=== PATIENT | male | born 1950 | race Caucasian/White ===

== ENCOUNTER → 2016-05-16 | Outpatient (CLI) | payer BC, OTHER ==
[~2016-05-16] VITALS: Ht 170.2 cm; Wt 91.2 kg
[~2016-05-16] MED LIST: /AMLO25TA PO; /HCTZ25TA PO; ALTA10CA3 PO; AMLO10TA2 PO; ASPI325T PO; ASPI81CH PO; ASPI81TA4 PO; GLUC500T PO; HYDR-727 PO; HYDR12.55 PO; INSULANT SC; LIDOCAINE 2% INJ 100 MG/5 ML SDV (FOR ANES.) As Ordered ONE; METF1000 PO; NS 1,000 ML IV SCH; PRAV40TA PO; PRAV40TA2 PO; PROPOFOL 200 MG/20 ML VIAL As Ordered ONE; RAMI10CA PO; TOPR100T PO; TOPR25TA PO; TYLE325T5 PO; VICT18IN SC; ZOCO20TA PO; insulin lantus SC
--- NOTE | 2016-05-16 11:25 | ROOR ---
Patient Name: Guerrero Dowd Procedure Date: 05/16/2016 11:04 AM Date of : 1950 Age: 65 Room: [facility] Gender: Male Note Status: Finalized Procedure: Colonoscopy to Cecum + Biopsy Polypectomy Indications: Screening for colorectal malignant neoplasm, Last colonoscopy: 2006 Providers: Alvarez Frank MD Referring MD: Denise Montilla DO Requesting Provider: Medicines: Monitored Anesthesia Care Complications: No immediate complications. Procedure: Pre-Anesthesia Assessment: - The heart rate, respiratory rate, oxygen saturations, blood pressure, adequacy of pulmonary ventilation, and response to care were monitored throughout the procedure. The Colonoscope was introduced through the anus and advanced to the cecum, identified by appendiceal orifice and ileocecal valve. The colonoscopy was performed without difficulty. The patient tolerated the procedure well. The quality of the bowel preparation was excellent. Findings: The perianal and digital rectal examinations were normal. Non-bleeding internal hemorrhoids were found during retroflexion. The hemorrhoids were small and Grade I (internal hemorrhoids that do not prolapse). Scattered small and large-mouthed diverticula were found in the recto-sigmoid colon, sigmoid colon and descending colon. A small polyp was found in the mid ascending colon. The polyp was sessile. The polyp was removed with a cold biopsy forceps. Resection and retrieval were complete. The exam was otherwise without abnormality on direct and retroflexion views. Impression: - Non-bleeding internal hemorrhoids. - Diverticulosis in the recto-sigmoid colon, in the sigmoid colon and in the descending colon. - One small polyp in the mid ascending colon, removed with a cold biopsy forceps. Resected and retrieved. - The examination was otherwise normal on direct and retroflexion views. - The exam was otherwise normal to the cecum. Recommendation: - Patient has a contact number available for emergencies. The signs and symptoms of potential delayed complications were discussed with the patient. Return to normal activities tomorrow. Written discharge instructions were provided to the patient. - High fiber diet. - Discharge patient to home. - Continue present medications. - Await pathology results. - Telephone GI clinic for pathology results in 1 week. - Repeat colonoscopy in 10 years for surveillance based on pathology results. - Return to referring physician. - The findings and recommendations were discussed with the patient's family. Alvarez Frank MD Alvarez Frank MD 05/16/2016 11:25:22 AM This report has been signed electronically. Number of Addenda: 0 Note Initiated On: 05/16/2016 11:04 AM Estimated Blood Loss: Estimated blood loss: none.
[2016-05-16 11:40] VITALS: BP 164/99
== END ==
LOC: M OPP 09:56
PROVIDERS: ATTEND Internal Medicine Gastroenterology
DX: Z12.11 Encounter for screening for malignant neoplasm of colon (principal); K64.0 First degree hemorrhoids; K57.30 Diverticulosis of large intestine without perforation or abscess without bleeding; E11.9 Type 2 diabetes mellitus without complications; I10 Essential (primary) hypertension; E78.00 Pure hypercholesterolemia, unspecified; R06.83 Snoring; Z79.82 Long term (current) use of aspirin; Z79.84 Long term (current) use of oral hypoglycemic drugs; Z79.899 Other long term (current) drug therapy; Z79.4 Long term (current) use of insulin; Z87.891 Personal history of nicotine dependence

== ENCOUNTER 2017-12-20 14:28 | Emergency (ER) | payer MEDICARE, BC, OTHER ==
[2017-12-20] MEDS: hydroCHLOROthiazide 25 MG TAB PO (16:03)
[2017-12-20] MEDS: amLODIPine 5 MG TAB PO (16:03)
[2017-12-20 16:43] LABS: BASO # 0.2 10^3/uL (0.0-0.2); BASO % 1.4 % (0.0-1.0); EOS # 0.3 10^3/uL (0.0-0.50); EOS % 3.2 % (0.0-3.0); HEMATOCRIT 43.2 % (42.0-52.0); HEMOGLOBIN 15.4 g/dl (13.5-17.5); IMMATURE GRANULOCYTE % 1.4 % (0-3.0); LYMPH # 2.4 10^3/uL (1.5-4.5); LYMPH % 22.6 % (24.0-44.0); MEAN CORPUSCULAR HGB CONC 35.6 g/dl (32.0-36.5); MONO # 0.9 10^3/uL (0.0-0.8); MONO % 8.6 % (0.0-5.0); NEUTROPHILS # 6.7 10^3/uL (1.8-7.7); NEUTROPHILS % 62.8 % (36.0-66.0); PLATELET COUNT, AUTOMATED 277 10^3/uL (150-450); RED BLOOD COUNT 5.14 10^6/uL (4.30-6.10); RED CELL DISTRIBUTION WIDTH 12.7 % (11.5-14.5); WHITE BLOOD COUNT 10.7 10^3/uL (4.0-10.0)
[2017-12-20 17:02] LABS: INR 0.83; PROTHROMBIN TIME 11.5 SECONDS (12.1-14.4)
[2017-12-20 17:24] LABS: ALBUMIN/GLOBULIN RATIO 0.85 (1.00-1.93); ALKALINE PHOSPHATASE 94 U/L (45-117); ALT/SGPT 37 U/L (12-78); ANION GAP 9 MEQ/L (8-16); AST/SGOT 26 U/L (7-37); BILIRUBIN,DIRECT < 0.1 MG/DL (0.0-0.2); BILIRUBIN,TOTAL 0.5 MG/DL (0.2-1.0); BLOOD UREA NITROGEN 26 MG/DL (7-18); CALCIUM LEVEL 9.2 MG/DL (8.8-10.2); CARBON DIOXIDE LEVEL 23 MEQ/L (21-32); CHLORIDE LEVEL 102 MEQ/L (98-107); CPK CREATINE PHOSPHOKINASE 159 U/L (39-308); CREATININE FOR GFR 1.51 MG/DL (0.70-1.30); GLOMERULAR FILTRATION RATE 49.6 (>49); GLUCOSE, FASTING 229 MG/DL (70-100); LIPASE 239 U/L (73-393); MB/CK RELATIVE INDEX 2.08 (< OR =4); POTASSIUM SERUM 4.6 MEQ/L (3.5-5.1); SODIUM LEVEL 134 MEQ/L (136-145); TOTAL PROTEIN 8.7 GM/DL (6.4-8.2); TROPONIN I < 0.02 NG/ML (< 0.10)
[2017-12-20] MEDS ORDERED: ISOVUE-370 76% 100ML VIAL (Q9967) As Ordered (17:44)
== END 2017-12-20 19:11 | disposition home or self-care (01) ==
LOC: M ED 14:28
DX: R07.9 Chest pain, unspecified (principal); E11.9 Type 2 diabetes mellitus without complications; I10 Essential (primary) hypertension; E78.5 Hyperlipidemia, unspecified; G47.30 Sleep apnea, unspecified; Z79.899 Other long term (current) drug therapy; Z79.82 Long term (current) use of aspirin; Z79.4 Long term (current) use of insulin; Z87.891 Personal history of nicotine dependence
CPT/HCPCS: Q9967

== ENCOUNTER → 2018-06-12 | Outpatient (REF) | payer MEDICARE, OTHER ==
[~2018-06-12] MED LIST changes: -AMLO10TA2 PO; +AMLO10TA5 PO; +CYCL10TA PO; -LIDOCAINE 2% INJ 100 MG/5 ML SDV (FOR ANES.) As Ordered ONE; -METF1000 PO; +METF10004 PO; -NS 1,000 ML IV SCH; -PROPOFOL 200 MG/20 ML VIAL As Ordered ONE; -RAMI10CA PO; +RAMI1CAP26 PO; -TOPR100T PO; +TOPR100T13 PO
== END ==
LOC: M LAB REF 16:41
PROVIDERS: ATTEND Physician Assistant
DX: J06.9 Acute upper respiratory infection, unspecified (principal)

== ENCOUNTER → 2019-06-23 | Outpatient (CLI) | payer MEDICARE, OTHER ==
[~2019-06-23] MED LIST changes: -/AMLO25TA PO; -/HCTZ25TA PO; -ASPI81CH PO; +ASPI81CH49 PO; +HYDR-3644 PO; +METO-1 PO; +NORV2TAB PO; +TOPR100T PO; -TOPR100T13 PO; -TOPR25TA PO
--- NOTE | 2019-06-23 15:13 | REP ---
RIGHT SHOULDER SERIES: THREE VIEWS. HISTORY: Pain. FINDINGS: Three views of the right shoulder demonstrate normal alignment of the glenohumeral and acromioclavicular joints. There is osteoarthritic hypertrophy and slight narrowing of the AC joint. There is mild spurring of the inferior articular margin of the humeral head as well. There is no evidence of fracture or subluxation. Periarticular soft tissues are unremarkable. No erosive changes seen. 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 Electronically Signed by Chidi Fairbanks MD 06/23/2019 03:41 P
--- NOTE | 2019-06-23 16:09 | REP ---
Cervical spine series: Seven views. History: Pain. Comparison soft-tissue neck radiographs are from December 13, 2007. Findings: There is extensive vascular calcification in the distribution of the left carotid artery. This is not a new finding although the calcification is more extensive. Lateral views done in flexion/extension and neutral position show no subluxation or instability. Vertebral body heights are preserved. The C7-T1 disc space is not visualized on lateral radiographs. No abnormality is seen at the cervical thoracic junction on oblique or AP views. There is mild osteoarthritic facet hypertrophy in the mid cervical spine bilaterally. Open-mouth odontoid view is unremarkable. Impression: Mild degenerative disc and osteoarthritic facet changes. Extensive vascular calcification in the distribution of the left carotid artery. No bony neural foraminal encroachment. Electronically Signed by Chidi Fairbanks MD 06/23/2019 05:00 P
== END ==
LOC: M WUC 11:44
PROVIDERS: ATTEND Nurse Practitioner Family
DX: M25.511 Pain in right shoulder (principal); M54.2 Cervicalgia

== ENCOUNTER → 2019-11-19 | Outpatient (CLI) | payer MEDICARE, BC, OTHER ==
[~2019-11-19] MED LIST changes: -AMLO10TA5 PO; +AMLO1TAB25 PO; +CYCL-707 PO; -CYCL10TA PO
--- NOTE | 2019-11-26 16:57 | REP ---
LEFT KNEE SERIES: 6 VIEWS HISTORY: Lateral and medial pain and difficulty bending. Sprained medial collateral ligament. FINDINGS: There is extensive vascular calcification. There is no evidence of joint effusion. Mild lateral patellar articular spurring is seen consistent with osteoarthritis. Joint spaces are preserved. No fracture is seen. IMPRESSION: Mild patellar spurring. Extensive vascular calcification. No acute bony abnormality. MTDD
== END ==
LOC: M WUC 11:08
PROVIDERS: ATTEND Physician Assistant
DX: S83.412A Sprain of medial collateral ligament of left knee, initial encounter (principal); M17.12 Unilateral primary osteoarthritis, left knee; X58.XXXA Exposure to other specified factors, initial encounter; Y92.9 Unspecified place or not applicable

== ENCOUNTER → 2020-04-06 | Outpatient (CLI) | payer SELFPAY | LOC: M LABSMTC 11:56 | PROVIDERS: ATTEND Pediatrics | DX: Z20.828 Contact with and (suspected) exposure to other viral communicable diseases (principal) ==

== ENCOUNTER → 2020-06-09 | Outpatient (CLI) | payer MEDICARE, BC, OTHER ==
--- NOTE | 2020-06-09 08:51 | REP ---
INDICATION: HYPERTENSIVE CKD, SCREENING FOR AAA. COMPARISON: None. TECHNIQUE: Multiple ultrasonographic images of the aorta. FINDINGS: Aortic in diameter measurements: Proximal, at the diaphragm: 2.1 cm AP x 2.5 cm transverse. At renal artery level: 2.1 cm AP x 2.3 cm transverse. Mid aorta: 2.4 cm AP x 1.8 cm transverse. Distal aorta above the bifurcation: 1.8 cm AP x 2.0 cm transverse Right common iliac artery: 1.0 cm AP x 1.2 cm transverse. Left common iliac artery: 1.2 cm AP x 1.2 cm transverse. IMPRESSION: The abdominal aortic measurements are normal. There is no abdominal aortic aneurysm. <Electronically signed by Tyler Brunner > 06/09/20 [id number]
--- NOTE | 2020-06-09 09:09 | REP ---
INDICATION: RENAL DOPPLER. COMPARISON: None. TECHNIQUE: Bilateral renal ultrasound and bilateral renal artery Doppler ultrasound evaluation. FINDINGS: Bilateral renal ultrasound: The right kidney measures 10.1 x 6.0 x 5.6 cm. The left kidney measures 11.9 x 5.7 x 6.1 cm. The kidneys are normal size. Renal cortical echogenicity is normal bilaterally. There is increased renal sinal so fat bilaterally, compatible with chronic renal disease. There is no hydronephrosis or calculus on the right or the left. There are no solid or cystic renal masses. Bilateral renal artery Doppler evaluation: Right renal artery: Peak renal artery velocity could not be obtained. Peak renal aortic velocity is 72 centimeters/second. Renal-aortic ratio could not be calculated. Resistive index: Upper pole 0.69, mid pole 0.74, lower pole 0.69 Acceleration time: Upper pole 0.114, mid pole 0.147, lower pole 0.103. Left Renal artery: Peak renal artery velocity could not be obtained. Peak aortic velocity: 72 centimeters/second. Renal-aortic ratio: Could not be obtained. Resistive index: Upper pole 0.74, mid pole 0.75, lower pole 0.75 Acceleration time: Upper pole 0.033, mid pole 0.031, lower pole 0.50. The main renal arteries are obscured by bowel gas. On the right in the intrarenal arterial waveforms demonstrate mild tardus/parvus and the acceleration times are increased. These findings are suspicious for right renal artery stenosis. Consider follow-up renal artery MRA for further evaluation. The left kidney intrarenal arterial waveforms are within normal limits. IMPRESSION: The findings suggest right renal artery stenosis. Follow-up renal artery MRI is recommended for confirmation. There are findings compatible with chronic renal disease bilaterally. <Electronically signed by Tyler Brunner > 06/09/20 [id number]
== END ==
LOC: M RAD 07:34
PROVIDERS: ATTEND Family Medicine
DX: I12.9 Hypertensive chronic kidney disease with stage 1 through stage 4 chronic kidney disease, or unspecified chronic kidney disease (principal)

== ENCOUNTER 2020-08-24 09:59 | Emergency (ER) | payer MEDICARE, BC, OTHER ==
[~2020-08-24] VITALS: Ht 167.6 cm; Wt 87.2 kg
[2020-08-24 12:14] VITALS: BP 170/88
== END 2020-08-24 12:20 | disposition home or self-care (01) ==
LOC: M ED 09:59
DX: M25.512 Pain in left shoulder (principal); G89.29 Other chronic pain; E11.9 Type 2 diabetes mellitus without complications; I10 Essential (primary) hypertension; E78.5 Hyperlipidemia, unspecified; G47.33 Obstructive sleep apnea (adult) (pediatric); Z79.82 Long term (current) use of aspirin; Z79.4 Long term (current) use of insulin

== ENCOUNTER → 2020-11-05 | Outpatient (CLI) | payer MEDICARE, BC, OTHER ==
[~2020-11-05] MED LIST changes: +GLIM1TAB4; +OZEM2INJ2; +PERC5TAB12 PO; +TRES1INJ
--- NOTE | 2020-11-05 15:53 | REP ---
INDICATION: IMPINGEMENT SYNDROME LT SHOULDER, MYALGIA. COMPARISON: None. TECHNIQUE: Long and short axes water density and fat density scans were obtained. FINDINGS: There is severe anterior impingement due to acromioclavicular joint hypertrophy. There is full-thickness tear and 2 cm retraction supraspinatus tendon the remainder of the rotator cuff is intact. Bicipital tendon is intact. There is large joint effusion. Fluid is noted in the subacromial bursa. There is no labral injury. IMPRESSION: Supraspinatus tear and retraction. Joint effusion P 8 anterior impingement. RIS/[employer] Issue: The critical information above was relayed directly by me by telephone to CHRIS CROWLEY on 11/05/2020 at 3:30 pm with readback verification. <Electronically signed by Davis Egan > 11/05/20 [id number]
--- NOTE | 2020-11-07 13:30 | REPVR ---
PROCEDURE INFORMATION: Exam: MR Cervical Spine Without Contrast Exam date and time: 11/05/2020 3:01 PM Age: 70 years old Clinical indication: Neck pain; Additional info: Impingement syndrome lt shoulder, myalgia TECHNIQUE: Imaging protocol: Multiplanar magnetic resonance images of the cervical spine without contrast. COMPARISON: CR SPINE CERVICAL COMPL 06/23/2019 12:08 PM FINDINGS: Vertebrae: Unremarkable. Spinal cord: Normal signal. No cord compression. C2-C3: No significant disc disease. No significant spinal stenosis. C3-C4: There is disc desiccation. There is a moderate disc/osteophyte complex, partial toward the right, that flattens the ventral thecal sac and compromises the right neural foramen. There is a small right subarticular disc protrusion. There is bilateral uncovertebral joint arthropathy, worse on the right. There is moderate bilateral neural foraminal narrowing, right worse than left. C4-C5: There is disc desiccation. There is mild ventral ridging which flattens the ventral thecal sac. There is moderate bilateral uncovertebral joint arthropathy. There is moderate bilateral neural foraminal narrowing. C5-C6: There is disc desiccation. There is a moderate disc/osteophyte complex that flattens the ventral thecal sac. There is moderate bilateral uncovertebral joint arthropathy. There is moderate bilateral neural foraminal narrowing. C6-C7: There is disc desiccation. C7-T1: No significant disc disease. No significant spinal stenosis. Soft tissues: Unremarkable. IMPRESSION: Multilevel degenerative changes causing varying degrees of spinal canal and neuroforaminal narrowing. Please see details above. Electronically signed by: Digeo Ibarra On 11/07/2020 13:29:56 PM
== END ==
LOC: M PLAIMG 14:08
PROVIDERS: ATTEND Physician Assistant
DX: M75.42 Impingement syndrome of left shoulder (principal)

== ENCOUNTER → 2021-01-07 | Outpatient (REF) | payer MEDICARE, BC, OTHER | LOC: M LAB REF 11:38 | PROVIDERS: ATTEND Family Medicine | DX: N18.30 Chronic kidney disease, stage 3 unspecified (principal) ==

== ENCOUNTER → 2021-02-02 | Outpatient (CLI) | payer MEDICARE, BC, OTHER ==
[~2021-02-02] MED LIST changes: +PROHANCE 279.3MG/ML 15ML VIAL As Ordered ONE
--- NOTE | 2021-02-02 14:06 | REP ---
INDICATION: POSSIBLE RENAL ARTERY STENOSIS. COMPARISON: Renal Doppler ultrasound 06/09/2020. TECHNIQUE: 3D [id number] MRA imaging performed following the intravenous administration of 12 mL ProHance. MIP reconstruction images performed. FINDINGS: There is a high-grade critical stenosis at the origin of the main right renal artery, 90-99%. Proximal main left renal artery demonstrates narrowing in the range of about 40-50%. The celiac, superior mesenteric and inferior mesenteric arteries are patent with no stenosis. The abdominal aorta demonstrates no aneurysm. The proximal common iliac arteries are normal in caliber. On the localizing images of the abdomen the liver, spleen, adrenals, pancreas and kidneys are otherwise unremarkable. No adenopathy or free fluid is seen. IMPRESSION: High-grade critical stenosis at the origin of the main right renal artery, 90-99%. There is narrowing of the proximal main left renal artery 40-50%. <Electronically signed by Tyler An > 02/02/21 [id number]
== END ==
LOC: M RAD 09:37
PROVIDERS: ATTEND Family Medicine
DX: I70.1 Atherosclerosis of renal artery (principal)
CPT/HCPCS: A9576; C8902

== ENCOUNTER → 2021-02-08 | Outpatient (POV) | payer MEDICARE, BC, OTHER ==
[~2021-02-08] VITALS: Ht 167.6 cm; Wt 86.3 kg
[~2021-02-08] MED LIST changes: -PROHANCE 279.3MG/ML 15ML VIAL As Ordered ONE
[2021-02-08 10:35] VITALS: BP 170/90
--- NOTE | 2021-02-10 13:27 | IRCOV ---
[facility] IR Consult Office Visit IR Consult Office Visit DATE: Feb 08, 2021 REASON FOR CONSULTATION/CHIEF COMPLAINT: Renal artery stenosis. HISTORY OF PRESENT ILLNESS: 70-year-old male, ex-smoker with prior stroke in 2012, diabetes and hyperlipidemia, presents for renal artery stenosis. Patient reports history of hypertension for greater than 25 years. His blood pressure is never below the 160s systolic. He is on 4 antihypertensives and still his blood pressure will not come down. Currently he is taking amlodipine 10 mg daily, hydrochlorothiazide 25 mg daily, metoprolol 100 mg daily and ramipril 10 mg daily. Patient does not have any history of flash pulmonary edema. Patient is not currently in renal failure. He is scheduled to see nephrology in March. Patient is on aspirin 325 mg daily. ALLERGIES: Please see below. HOME MEDICATIONS: Please see below. PAST MEDICAL HISTORY: Stroke in 2012. No residual weakness. Diabetes Hyperlipidemia PAST SURGICAL HISTORY: Hand surgery FAMILY HISTORY: Noncontributory. SOCIAL HISTORY: Ex smoker. Quit 20 years ago. Denies alcohol or drugs. REVIEW OF SYSTEMS: Otherwise negative. PHYSICAL EXAMINATION: VITAL SIGNS: Please see below. GENERAL APPEARANCE: Appears well. . HEENT: No scleral icterus. RESPIRATORY: Normal breathing at rest. CARDIOVASCULAR: Normal rate. Systolic murmur. ABDOMEN: Soft nontender. EXTREMITIES: No edema. NEUROLOGICAL: Alert and oriented. PSYCHIATRIC: Appropriate to circumstance. LABORATORY DATA: No labs in our system. We will request outside labs. Imaging: I personally reviewed the MRI abdomen without and with contrast performed 02/02/2021. There is critical right renal artery stenosis. Moderate left renal artery stenosis. No significant atrophy of either kidney. ASSESSMENT/PLAN: 70-year-old male with refractory hypertension, currently on 4 antihypertensives, presents with right greater than left renal artery stenosis. I agree patient would benefit from angiography and right renal artery stenting if possible. The goal would be better blood pressure control and hopefully decrease in number of future antihypertensives used. We discussed the risks and benefits of the procedure and patient is willing to proceed. We have scheduled the patient for renal artery angiography and stenting. I spent 30 minutes reviewing patient's records, imaging and in consultation with the patient. Thank you for this referral. CC Dr. Kendall Lezama Allergies Coded Allergies: No Known Allergies (Verified , 04/22/12) Home Medications Scheduled Amlodipine Besylate (Amlodipine Besylate), 10 MG PO DAILY, (Reported) Aspirin (Aspirin), 325 MG PO DAILY, (Reported) Hydrochlorothiazide (Hydrochlorothiazide), 25 MG PO DAILY, (Reported) Metformin HCl (Metformin HCl), 1,000 MG PO BID, (Reported) Metoprolol Succinate (Toprol Xl), 100 MG PO DAILY, (Reported) Pravastatin Sodium (Pravastatin Sodium), 40 MG PO DAILY, (Reported) Ramipril (Ramipril), 10 MG PO DAILY, (Reported) Scheduled PRN Oxycodone HCl/Acetaminophen (Percocet 5-325 mg Tablet), 1 TAB PO Q6H PRN for PAIN Miscellaneous Medications Glimepiride (Glimepiride), (Reported) Insulin Degludec (Tresiba Flextouch U-200), (Reported) Semaglutide (Ozempic), (Reported) VS, I&O, 24H, Fishbone Vital Signs/I&O Vital Signs Date Time Temp Pulse Resp B/P (MAP) Pulse Ox O2 Delivery O2 Flow Rate FiO2 02/08/21 10:35 98.0 91 20 170/90 (116) 98 Room Air RAYMUNDO CHERRY MD Feb 10, 2021 13:27
== END ==
LOC: M IRPOV 10:28
PROVIDERS: ATTEND Radiology Diagnostic Radiology
DX: I70.1 Atherosclerosis of renal artery (principal); E11.9 Type 2 diabetes mellitus without complications; E78.5 Hyperlipidemia, unspecified; I10 Essential (primary) hypertension; Z79.82 Long term (current) use of aspirin; Z79.899 Other long term (current) drug therapy; Z86.73 Personal history of transient ischemic attack (TIA), and cerebral infarction without residual deficits; Z87.891 Personal history of nicotine dependence

== ENCOUNTER → 2021-02-24 | Outpatient (CLI) | payer MEDICARE, BC, OTHER ==
[~2021-02-24] MED LIST changes: +GABA-1171 PO; +ISOVUE-300 61% 50ML VIAL As Ordered ONE; +LIDOCAINE 1% MDV 20ML VIAL As Ordered ONE; +MIDAZOLAM INJ 2MG/2ML VIAL (J2250 PER 1MG) As Ordered ONE; +ONDANSETRON 4MG/2ML VIAL IV PRN; +PERCOCET 5MG/325MG TAB As Ordered ONE; +diphenhydrAMINE 50MG/ML VIAL (J1200) As Ordered ONE; +fentaNYL 100 MCG/2 ML INJECTION (J3010) As Ordered ONE
[2021-02-24] MEDS: NS 1,000 ML IV SCH (07:24)
--- NOTE | 2021-02-24 08:08 | IRHP ---
[facility] IR Pre-Procedure H & P General Date of Service: Feb 24, 2021 Procedure: Same Day Surgery Interval History and Physical I have seen the patient and reviewed last H & P performed within 30 days. There is no significant interval change. History of Present Illness Chief Complaint The patient is a 70-year-old male admitted with a reason for visit of Renal Artery Stenosis. PRE-PROCEDURE DIAGNOSIS: Renal artery stenosis HEART: Normal rate. LUNGS: Normal breathing at rest. ASA Classification ASA Classification: III-Severe systemic dis. Mallampati Score: II NPO: Yes Problems with prior sedation: No Obstructive Sleep Apnea: No Plan moderate sedation Allergies Coded Allergies: No Known Allergies (Verified , 04/22/12) Home Medications Scheduled Amlodipine Besylate (Amlodipine Besylate), 10 MG PO DAILY, (Reported) Aspirin (Aspirin), 325 MG PO DAILY, (Reported) Gabapentin (Gabapentin), 100 MG PO TID, (Reported) Hydrochlorothiazide (Hydrochlorothiazide), 25 MG PO DAILY, (Reported) Metformin HCl (Metformin HCl), 1,000 MG PO BID, (Reported) Metoprolol Succinate (Toprol Xl), 100 MG PO DAILY, (Reported) Pravastatin Sodium (Pravastatin Sodium), 40 MG PO DAILY, (Reported) Ramipril (Ramipril), 10 MG PO DAILY, (Reported) Miscellaneous Medications Glimepiride (Glimepiride), (Reported) Insulin Degludec (Tresiba Flextouch U-200), (Reported) Semaglutide (Ozempic), (Reported) Discontinued Medications Oxycodone HCl/Acetaminophen (Percocet 5-325 mg Tablet), 1 TAB PO Q6H PRN for PAIN Discontinued Reason: Pt states not taking VS, I&O, 24H, Fishbone Vital Signs/I&O Vital Signs Date Time Temp Pulse Resp B/P (MAP) Pulse Ox O2 Delivery O2 Flow Rate FiO2 02/24/21 07:00 97.8 89 20 99 Room Air RAYMUNDO CHERRY MD Feb 24, 2021 08:08
--- NOTE | 2021-02-24 14:20 | IRPON ---
IR Postoperative Note Date Of Procedure: Feb 24, 2021 Time Of Procedure: 14:06 IR Postoperative Note IR Aortogram IR Selective right renal angiogram. IR Right renal artery stenting. IR Moderate sedation. Clinical Information:Right renal artery stenosis. Refractory hypertension on 4 antihypertensives. Physician: Dr. De León. Procedure: The patient was advised of the benefits, risks, and alternatives of the procedure and informed consent was obtained. A time out was performed with verification of the patient's name, MRN, site of procedure, and type of procedure to be performed. The patient was positioned in the supine position on the angiographic table. The site was prepped and draped in the usual sterile fashion. Moderate sedation was performed by the physician including the presence of an independent trained RN, who assisted in monitoring the patient's level of consciousness and physiological status. Following the administration of fentanyl and Versed, the physician spent 60 minutes of continuous [id number] time with the patient. A nascar racer radiograph reveals no gross abnormality. Ultrasound of the right groin demonstrates patent right common femoral artery. Lidocaine was used for local anesthesia. The right common femoral artery was accessed, under ultrasound guidance with a microintroducer set. A short 0.018" [place] wire was inserted and the needle was exchanged for a 4 Fr microintroducer sheath. The guidewire and dilator were removed and a 0.035" [place]ents[place] wire was advanced under fluoroscopy guidance and positioned in the the abdominal aorta. A 6 Fr sheath was placed over the wire. A pigtail catheter was advanced over the wire, under fluoroscopy guidance and used to catheterize the abdominal aorta. An aortogram was performed which demonstrates right greater than left renal artery stenosis. There is delayed opacification of the right renal artery and vascularization of the right kidney in comparison to the left kidney. An [facility] guiding catheter was advanced over the wire, under fluoroscopy guidance and positioned at the ostium of the right renal artery. An angiogram was performed and this demonstrates the anatomy of the main right renal artery and location of the proximal stenosis. The Bentson wires were removed. An [address] wire was then advanced through the guiding catheter, under fluoroscopy guidance and used to access the right renal artery. The wire was positioned in the distal right renal artery. A 5 x 19 mm balloon expandable express stent was then advanced over the wire, under fluoroscopy guidance and positioned in the proximal right renal artery for adequate coverage of the area of stenosis. The balloon expandable stent was deployed under fluoroscopy guidance. A follow-up angiogram was performed through the guiding catheter and this demonstrates appropriate placement of the stent in the right proximal renal artery with improved flow to the right kidney. No residual stenosis. No vessel spasm, dissection or distal emboli. Deployment device, wire and guiding catheter were removed under fluoroscopy gu idance. The sheath was removed. A 6 [place] [employer] device was used to close the right groin arteriotomy. A sterile dressing was applied to the site. The patient tolerated the procedure well and was returned to the PRU in stable condition. EBL: < 5 mL. Complications:None. Impression: 1. Renal angiogram demonstrates right greater than left renal artery stenosis. 2. Successful right renal artery stent placement with improved flow to the right kidney. 3. Patient is to continue aspirin 325. He will be started on Plavix for 30 days. Patient to follow-up in IR clinic in 2 weeks. Thank you for this referral CC RAYMUNDO Iyer MD Feb 24, 2021 14:20
[2021-02-24] MEDS: PERCOCET 5MG/325MG TAB PO PRN (14:38)
[2021-02-24 15:10] VITALS: BP 160/84
== END ==
LOC: M IRPRO 06:29
PROVIDERS: ATTEND Radiology Diagnostic Radiology
DX: I70.1 Atherosclerosis of renal artery (principal); Z79.4 Long term (current) use of insulin; Z79.82 Long term (current) use of aspirin; Z79.84 Long term (current) use of oral hypoglycemic drugs; Z79.890 Hormone replacement therapy

== ENCOUNTER → 2021-03-17 | Outpatient (REF) | payer MEDICARE, BC, OTHER ==
[~2021-03-17] MED LIST changes: -ISOVUE-300 61% 50ML VIAL As Ordered ONE; -LIDOCAINE 1% MDV 20ML VIAL As Ordered ONE; -MIDAZOLAM INJ 2MG/2ML VIAL (J2250 PER 1MG) As Ordered ONE; -ONDANSETRON 4MG/2ML VIAL IV PRN; -PERCOCET 5MG/325MG TAB As Ordered ONE; -diphenhydrAMINE 50MG/ML VIAL (J1200) As Ordered ONE; -fentaNYL 100 MCG/2 ML INJECTION (J3010) As Ordered ONE
== END ==
LOC: M LAB REF 11:47
PROVIDERS: ATTEND Family Medicine
DX: E83.52 Hypercalcemia (principal)

== ENCOUNTER → 2021-03-29 | Outpatient (POV) | payer MEDICARE, BC, OTHER ==
[~2021-03-29] VITALS: Ht 167.6 cm; Wt 86.3 kg
[2021-03-29 16:20] VITALS: BP 177/83
== END ==
LOC: M IRPOV 16:07
PROVIDERS: ATTEND Radiology Diagnostic Radiology
DX: I70.1 Atherosclerosis of renal artery (principal); Z48.816 Encounter for surgical aftercare following surgery on the genitourinary system; Z79.01 Long term (current) use of anticoagulants; Z79.82 Long term (current) use of aspirin

== ENCOUNTER → 2021-04-04 | Outpatient (REF) | payer MEDICARE, BC, OTHER ==
[2021-04-04 18:24] LABS: CREATININE,RANDOM URINE 32.6 MG/DL; TOTAL PROTEIN,RANDOM URINE 63.3 MG/DL (0.0-12.0)
== END ==
LOC: M LAB REF 17:10
PROVIDERS: ATTEND Internal Medicine Nephrology
DX: R80.9 Proteinuria, unspecified (principal)

== ENCOUNTER → 2021-07-30 | Outpatient (CLI) | payer MEDICARE, BC, OTHER ==
[~2021-07-30] MED LIST changes: +CLOP75TA2 PO; -GLIM1TAB4; +GLIM1TAB4 PO; +SEMA1PEN2 SQ; -TRES1INJ; +TRES1INJ SC
== END ==
LOC: M LABSMTC 09:27
PROVIDERS: ATTEND Anesthesiology
DX: Z01.812 Encounter for preprocedural laboratory examination (principal); Z20.822 Contact with and (suspected) exposure to COVID-19

== ENCOUNTER 2021-08-04 06:28 | Day surgery (SDC) | payer MEDICARE, BC, OTHER ==
[~2021-08-04] VITALS: Ht 167.6 cm; Wt 90.6 kg
[2021-08-04] MEDS ORDERED: NIFE90TA20 PO (06:42)
[2021-08-04] MEDS ORDERED: LIDOCAINE 1% SDV 5ML VIAL As Ordered ONE (06:44)
[2021-08-04] MEDS: FLURBIPROFEN 0.03% OPHTH SOLN 2.5 ML OS SCH ×3 (06:55→07:08)
[2021-08-04] MEDS: TETRACAINE 0.5% OPHTH SOLN 4ML OS SCH ×2 (06:55→07:01)
[2021-08-04] MEDS: PHENYLEPHRINE 2.5% OPHTH SOL 2ML OS SCH ×3 (06:55→07:08)
[2021-08-04] MEDS: CYCLOPENTOLATE 1% OPHTH SOLN 2 ML BTL OS SCH ×3 (06:56→07:08)
[2021-08-04] MEDS ORDERED: LR 1,000 ML IV SCH (07:00)
[2021-08-04] MEDS ORDERED: MAXITROL OPHTH SUSP 5 ML As Ordered ONE (07:09)
[2021-08-04] MEDS ORDERED: TRYPAN BLUE 0.06 % 2.25 ML OPHTH SYR (VISIONBLUE) As Ordered ONE (07:20)
[2021-08-04] MEDS ORDERED: fentaNYL 100 MCG/2 ML INJECTION As Ordered ONE (08:24)
[2021-08-04] MEDS ORDERED: MIDAZOLAM INJ 2MG/2ML VIAL (J2250 PER 1MG) As Ordered ONE (08:24)
[2021-08-04 08:46] VITALS: BP 119/64
== END 2021-08-04 09:19 | disposition home or self-care (01) ==
LOC: M OPP 06:28
PROVIDERS: ATTEND Ophthalmology
DX: H25.12 Age-related nuclear cataract, left eye (principal); I12.9 Hypertensive chronic kidney disease with stage 1 through stage 4 chronic kidney disease, or unspecified chronic kidney disease; E11.65 Type 2 diabetes mellitus with hyperglycemia; K76.9 Liver disease, unspecified; E78.5 Hyperlipidemia, unspecified; I70.1 Atherosclerosis of renal artery; G47.33 Obstructive sleep apnea (adult) (pediatric); N18.30 Chronic kidney disease, stage 3 unspecified; E11.40 Type 2 diabetes mellitus with diabetic neuropathy, unspecified; R06.83 Snoring; Z86.73 Personal history of transient ischemic attack (TIA), and cerebral infarction without residual deficits; Z87.891 Personal history of nicotine dependence; Z79.899 Other long term (current) drug therapy; Z79.02 Long term (current) use of antithrombotics/antiplatelets; Z79.84 Long term (current) use of oral hypoglycemic drugs; Z79.82 Long term (current) use of aspirin; Z79.4 Long term (current) use of insulin; Z96.89 Presence of other specified functional implants
CPT/HCPCS: 66984; J2250; J3010; V2632

== ENCOUNTER → 2021-08-16 | Outpatient (CLI) | payer MEDICARE, BC, OTHER ==
[~2021-08-16] MED LIST changes: +NIFE90TA20 PO
== END ==
LOC: M CARPUL 08:09
PROVIDERS: ATTEND Family Medicine
DX: R01.1 Cardiac murmur, unspecified (principal)

== ENCOUNTER 2021-10-07 07:23 | Inpatient (IN) | payer MEDICARE, BC, OTHER ==
[2021-10-07] VITALS (18 sets, daily range): BP systolic 118–171; BP diastolic 64–89
[~2021-10-07 07:23] MED LIST changes: +SEMA1PEN2 SC; -SEMA1PEN2 SQ
[2021-10-07] MEDS ORDERED: PROPOFOL 1,000 MG/100 ML VIAL As Ordered ONE (07:44)
[2021-10-07 07:45] LABS: HEMATOCRIT 44.9 % (42.0-52.0); HEMOGLOBIN 14.2 g/dl (13.5-17.5); MEAN CORPUSCULAR HGB CONC 31.6 g/dl (32.0-36.5); MEAN CORPUSCULAR VOLUME 94.9 fl (80.0-96.0); PLATELET COUNT, AUTOMATED 288 10^3/uL (150-450); RED BLOOD COUNT 4.73 10^6/uL (4.30-6.10); WHITE BLOOD COUNT 19.1 10^3/uL (4.0-10.0)
[2021-10-07] MEDS ORDERED: ETOMIDATE INJ 20MG/10ML VIAL IV ONE (07:45)
[2021-10-07] MEDS ORDERED: LABETALOL HCL 200 MG in D5W 160 ML IV SCH (07:45)
[2021-10-07] MEDS ORDERED: propofoL 1,000 MG in IV 1 EA IV SCH (07:45)
[2021-10-07] MEDS ORDERED: FUROSEMIDE 100MG/10ML VIAL (J1940) IV ONE (07:45)
[2021-10-07] MEDS ORDERED: ROCURONIUM BROMIDE 50 MG/5 ML VIAL IV ONE (07:45)
[2021-10-07 07:49] LABS: BASO # 0.4 10^3/uL (0.0-0.2); BASO % 2.1 % (0.0-1.0); EOS # 2.7 10^3/uL (0.0-0.5); EOS % 14.3 % (0.0-3.0); HEMATOCRIT 45.5 % (42.0-52.0); LYMPH # 6.9 10^3/uL (1.5-5.0); LYMPH % 36.1 % (24.0-44.0); MEAN CORPUSCULAR HEMOGLOBIN 29.1 pg (27.0-33.0); MEAN CORPUSCULAR HGB CONC 30.8 g/dl (32.0-36.5); MEAN CORPUSCULAR VOLUME 94.6 fl (80.0-96.0); MONO % 9.8 % (2.0-8.0); NEUTROPHILS % 36.5 % (36.0-66.0); PLATELET COUNT, AUTOMATED 289 10^3/uL (150-450); RED BLOOD COUNT 4.81 10^6/uL (4.30-6.10); WHITE BLOOD COUNT 19.1 10^3/uL (4.0-10.0)
[2021-10-07 08:02] LABS: INR 0.9; PROTHROMBIN TIME 12.6 SECONDS (12.7-14.5)
[2021-10-07 08:13] LABS: ALBUMIN 3.8 GM/DL (3.2-5.2); BILIRUBIN,DIRECT 0.3 MG/DL (0.0-0.2); BILIRUBIN,TOTAL 0.4 MG/DL (0.2-1.0); CK-MB VALUE MASS 3.7 NG/ML (<3.6); CREATININE FOR GFR 1.52 MG/DL (0.70-1.30); GLOMERULAR FILTRATION RATE 48.6 (>49); MB/CK RELATIVE INDEX 3.52 (< OR =4); POTASSIUM SERUM 4.5 MEQ/L (3.5-5.1); TOTAL PROTEIN 7.7 GM/DL (6.4-8.2)
[2021-10-07 08:14] LABS: MONO # 1.9 10^3/uL (0.0-0.8)
[2021-10-07] MEDS ORDERED: AMLO1TAB25 PO (08:35)
[2021-10-07] MEDS ORDERED: METO1TAB7 PO (08:35)
[2021-10-07] MEDS ORDERED: ASPIRIN ENTERIC 325 MG TAB PO SCH (09:00)
[2021-10-07] MEDS ORDERED: CHLORHEXIDINE GLUCONATE 0.12 % 15ML UDC (PERIDEX ORAL RINSE) MT SCH (09:00)
[2021-10-07] MEDS ORDERED: ATORVASTATIN 20 MG TAB PO SCH (09:00)
[2021-10-07] MEDS ORDERED: LISINOPRIL *2.5 MG* TAB PO SCH (09:00)
[2021-10-07] MEDS ORDERED: PANTOPRAZOLE 40MG VIAL IV SCH (09:00)
[2021-10-07] MEDS ORDERED: ENOXAPARIN 40MG/0.4ML SYRINGE (J1650 PER 10MG) SC SCH (09:00)
[2021-10-07] MEDS ORDERED: ATOR40TA75 PO (09:24)
[2021-10-07] MEDS ORDERED: HYDR-3490 PO (09:24)
[2021-10-07] MEDS ORDERED: ASPI-1 PO (09:24)
[2021-10-07] MEDS ORDERED: GABA-282 PO (09:24)
[2021-10-07] MEDS ORDERED: HOME MED LIST COMPLETE! XX SCH (09:30)
[2021-10-07] MEDS ORDERED: fentaNYL CITRATE 1,000 MCG in NS 80 ML IV SCH (11:00)
[2021-10-07 11:25] LABS: ABG BASE EXCESS -5.2 (-2.0-2.0); ABG HCO3 21.2 MEQ/L (22.0-26.0); ABG O2 SATURATION 96.2 % (95.0-99.0); ABG PARTIAL PRESSURE CO2 44.3 mmHg (35.0-45.0); ABG PARTIAL PRESSURE O2 86.7 mmHg (75.0-100.0); ABG STANDARD HCO3 20.2 MEQ/L (22.0-26.0); ABG TOTAL CO2 22.5 MEQ/L (23.0-31.0); ABG pH (ARTERIAL) 7.297 UNITS (7.350-7.450)
[2021-10-07] MEDS: propofoL 1,000 MG in IV 1 EA IV SCH ×2 (12:30→14:00)
[2021-10-07 12:59] LABS: MAGNESIUM LEVEL 1.7 MG/DL (1.8-2.4); PHOSPHORUS LEVEL 3.4 MG/DL (2.5-4.9)
[2021-10-07 14:41] LABS: CK-MB VALUE MASS 10.5 NG/ML (<3.6); MB/CK RELATIVE INDEX 6.48 (< OR =4)
[2021-10-07] MEDS ORDERED: HEPARIN SOD (PORCINE) 5000UNITS/ML 1ML VIAL/SYRINGE IV PRN (14:50)
[2021-10-07] MEDS ORDERED: NITROGLYCERIN 0.4 MG SUBL TABLET SL PRN (14:55)
[2021-10-07] MEDS ORDERED: HEPARIN SOD (PORCINE) 5000UNITS/ML 1ML VIAL/SYRINGE IV ONE (15:15)
[2021-10-07] MEDS ORDERED: ASPIRIN 325 MG TAB NG STA (15:17)
[2021-10-07] MEDS ORDERED: CLOPIDOGREL 75 MG TAB PO ONE (15:20)
[2021-10-07 15:39] LABS: PARTIAL THROMBOPLASTIN TIME 29.7 SECONDS (25.9-37.0)
[2021-10-07 15:50] LABS: HEMATOCRIT 38.7 % (42.0-52.0); HEMOGLOBIN 12.8 g/dl (13.5-17.5); MEAN CORPUSCULAR HEMOGLOBIN 29.4 pg (27.0-33.0); MEAN CORPUSCULAR HGB CONC 33.1 g/dl (32.0-36.5); MEAN CORPUSCULAR VOLUME 88.8 fl (80.0-96.0); PLATELET COUNT, AUTOMATED 197 10^3/uL (150-450); RED BLOOD COUNT 4.36 10^6/uL (4.30-6.10); WHITE BLOOD COUNT 12.7 10^3/uL (4.0-10.0)
[2021-10-07] MEDS ORDERED: METOPROLOL 5 MG/5 ML VIAL IV STA (15:51)
[2021-10-07] MEDS ORDERED: METOPROLOL 5 MG/5 ML VIAL As Ordered ONE (15:51)
[2021-10-07] MEDS ORDERED: HEPARIN DRIP 25,000 UNITS in IV 1 EA IV SCH (16:00)
== END 2021-10-07 16:35 | disposition short-term general hospital (02) | DRG 311 ==
LOC: M ED 07:23 → EDBD 07:23 → M ED INP 10:31 → ENRESERV 11:03 → M ICU 12:28
PROVIDERS: ADMIT Internal Medicine; ATTEND Internal Medicine
PROC: 0BH17EZ Insertion of Endotracheal Airway into Trachea, Via Natural or Artificial Opening (ICD-10-PCS; principal; 2021-10-07)
PROC: 5A1935Z Respiratory Ventilation, Less than 24 Consecutive Hours (ICD-10-PCS; 2021-10-07)
DX: I24.9 Acute ischemic heart disease, unspecified (principal); J96.02 Acute respiratory failure with hypercapnia; J81.0 Acute pulmonary edema; I16.1 Hypertensive emergency; R07.9 Chest pain, unspecified; G47.33 Obstructive sleep apnea (adult) (pediatric); E11.22 Type 2 diabetes mellitus with diabetic chronic kidney disease; I12.9 Hypertensive chronic kidney disease with stage 1 through stage 4 chronic kidney disease, or unspecified chronic kidney disease; E66.9 Obesity, unspecified; Z87.891 Personal history of nicotine dependence; N18.30 Chronic kidney disease, stage 3 unspecified; Z86.73 Personal history of transient ischemic attack (TIA), and cerebral infarction without residual deficits; I70.1 Atherosclerosis of renal artery; Z98.41 Cataract extraction status, right eye; E11.51 Type 2 diabetes mellitus with diabetic peripheral angiopathy without gangrene; Z79.82 Long term (current) use of aspirin; Z79.02 Long term (current) use of antithrombotics/antiplatelets; Z79.4 Long term (current) use of insulin; Z79.899 Other long term (current) drug therapy; Z68.32 Body mass index [BMI] 32.0-32.9, adult

== ENCOUNTER → 2021-10-27 | Outpatient (CLI) | payer MEDICARE, BC, OTHER ==
[~2021-10-27] MED LIST changes: +ASPI-1 PO; +ATOR40TA75 PO; +GABA-282 PO; +HYDR-3490 PO; +METO1TAB7 PO
[2021-10-27 12:29] LABS: ALBUMIN 3.6 GM/DL (3.2-5.2); CALCIUM LEVEL 9.8 MG/DL (8.8-10.2); CREATININE FOR GFR 1.95 MG/DL (0.70-1.30); GLOMERULAR FILTRATION RATE 36.5 (>49); POTASSIUM SERUM 4.9 MEQ/L (3.5-5.1)
== END ==
LOC: M RAD 10:02
PROVIDERS: ATTEND Internal Medicine Cardiovascular Disease
DX: I50.41 Acute combined systolic (congestive) and diastolic (congestive) heart failure (principal); R09.89 Other specified symptoms and signs involving the circulatory and respiratory systems; Z86.73 Personal history of transient ischemic attack (TIA), and cerebral infarction without residual deficits

== ENCOUNTER → 2021-10-31 | Outpatient (CLI) | payer MEDICARE, BC, OTHER | LOC: M RAD 06:24 | PROVIDERS: ATTEND Internal Medicine Cardiovascular Disease | DX: I10 Essential (primary) hypertension (principal) ==

== ENCOUNTER → 2021-11-14 | Outpatient (CLI) | payer MEDICARE, BC, OTHER | LOC: M PLALAB 10:25 | PROVIDERS: ATTEND Internal Medicine Cardiovascular Disease | DX: I50.42 Chronic combined systolic (congestive) and diastolic (congestive) heart failure (principal) ==

== ENCOUNTER 2022-01-12 14:22 | Inpatient (IN) | payer OTHER, MEDICARE, BC ==
[~2022-01-12] VITALS: Ht 167.6 cm; Wt 76.0 kg
[2022-01-12] MEDS ORDERED: ONDANSETRON 4MG 2ML VIAL IV ONE (14:40)
[2022-01-12] MEDS ORDERED: MORPHINE 2 MG/ML 1ML VIAL IV PRN (14:40)
[2022-01-12 15:49] LABS: BASO # 0.1 10^3/uL (0.0-0.2); BASO % 1.2 % (0.0-1.0); EOS # 0.4 10^3/uL (0.0-0.5); EOS % 3.6 % (0.0-3.0); HEMATOCRIT 38.5 % (42.0-52.0); HEMOGLOBIN 12.7 g/dl (13.5-17.5); LYMPH # 1.3 10^3/uL (1.5-5.0); LYMPH % 11.8 % (24.0-44.0); MEAN CORPUSCULAR HEMOGLOBIN 29.6 pg (27.0-33.0); MEAN CORPUSCULAR VOLUME 89.7 fl (80.0-96.0); MONO # 0.7 10^3/uL (0.0-0.8); MONO % 6.9 % (2.0-8.0); NEUTROPHILS % 75.6 % (36.0-66.0); PLATELET COUNT, AUTOMATED 186 10^3/uL (150-450); RED BLOOD COUNT 4.29 10^6/uL (4.30-6.10); WHITE BLOOD COUNT 10.6 10^3/uL (4.0-10.0)
[2022-01-12 16:05] LABS: INR 0.94; PROTHROMBIN TIME 12.8 SECONDS (12.5-14.5)
[2022-01-12 16:25] LABS: ALBUMIN 3.8 GM/DL (3.2-5.2); BILIRUBIN,DIRECT 0.1 MG/DL (0.0-0.2); BILIRUBIN,TOTAL 0.4 MG/DL (0.2-1.0); CALCIUM LEVEL 9.2 MG/DL (8.8-10.2); CREATININE FOR GFR 1.6 MG/DL (0.70-1.30); GLOMERULAR FILTRATION RATE 45.9 (>49); POTASSIUM SERUM 4.3 MEQ/L (3.5-5.1); TOTAL PROTEIN 7.1 GM/DL (6.4-8.2)
[2022-01-12 16:26] LABS: CK-MB VALUE MASS 3.8 NG/ML (<3.6); MB/CK RELATIVE INDEX 2.52 (< OR =4)
[2022-01-12] MEDS ORDERED: DEXTROSE 50% 50 ML SYRINGE IV PRN (17:00)
[2022-01-12] MEDS ORDERED: GLUCOSE 4GM CHEW TABLET PO PRN (17:00)
[2022-01-12] MEDS ORDERED: GLUCAGON INJ 1MG VIAL SC PRN (17:00)
[2022-01-12] MEDS: INSULIN LISPRO (NovoLOG) PER UNIT SC SCH ×2 (17:30→21:00)
[2022-01-12] MEDS ORDERED: AMLO1TAB24 PO (18:38)
[2022-01-12] MEDS ORDERED: ATOR80TA59 PO (18:38)
[2022-01-12] MEDS ORDERED: ASPI81CH33 PO (18:38)
[2022-01-12 18:49] LABS: CK-MB VALUE MASS 4.9 NG/ML (<3.6); MB/CK RELATIVE INDEX 2.69 (< OR =4)
[2022-01-12] MEDS ORDERED: TORS5TAB2 PO (18:49)
[2022-01-12] MEDS ORDERED: NITR0.4S14 SL (18:49)
[2022-01-12] MEDS ORDERED: CARV25TA PO (18:49)
[2022-01-12] MEDS ORDERED: HOME MED LIST COMPLETE! XX SCH (18:55)
[2022-01-12 19:18] LABS: RSV AMPLIFICATION NEGATIVE (NEGATIVE)
[2022-01-12 23:30] VITALS: BP 178/90
[2022-01-12 23:53] LABS: CK-MB VALUE MASS 3.7 NG/ML (<3.6); MB/CK RELATIVE INDEX 2.26 (< OR =4)
[2022-01-13] VITALS (10 sets, daily range): BP systolic 131–166; BP diastolic 60–78
[2022-01-13] MEDS ORDERED: NITROGLYCERIN 0.4 MG SUBL TABLET SL SCH
[2022-01-13] MEDS: amLODIPine 5 MG TAB PO SCH ×3 (00:16→20:13)
[2022-01-13] MEDS ORDERED: NITROGLYCERIN 0.4 MG SUBL TABLET SL PRN (00:35)
[2022-01-13 05:51] LABS: MEAN CORPUSCULAR HEMOGLOBIN 29.3 pg (27.0-33.0); MEAN CORPUSCULAR HGB CONC 32.4 g/dl (32.0-36.5); MEAN CORPUSCULAR VOLUME 90.2 fl (80.0-96.0); PLATELET COUNT, AUTOMATED 191 10^3/uL (150-450); WHITE BLOOD COUNT 9.2 10^3/uL (4.0-10.0)
[2022-01-13 06:29] LABS: MB/CK RELATIVE INDEX 1.94 (< OR =4)
[2022-01-13 06:31] LABS: ALBUMIN 3.3 GM/DL (3.2-5.2); BILIRUBIN,TOTAL 0.4 MG/DL (0.2-1.0); CALCIUM LEVEL 8.8 MG/DL (8.8-10.2); CREATININE FOR GFR 1.34 MG/DL (0.70-1.30); GLOMERULAR FILTRATION RATE 56.3 (>49); POTASSIUM SERUM 3.8 MEQ/L (3.5-5.1); TOTAL PROTEIN 6.3 GM/DL (6.4-8.2)
[2022-01-13] MEDS: INSULIN LISPRO (NovoLOG) PER UNIT SC SCH ×4 (08:30→19:50)
[2022-01-13] MEDS: ASPIRIN 81 MG CHEW TABLET PO SCH (09:12)
[2022-01-13] MEDS: CLOPIDOGREL 75 MG TAB PO SCH (09:12)
[2022-01-13] MEDS ORDERED: ATORVASTATIN 20 MG TAB PO SCH (21:00)
[2022-01-14 04:01] VITALS: BP 158/76
[2022-01-14] MEDS: INSULIN LISPRO (NovoLOG) PER UNIT SC SCH (07:30)
[2022-01-14 07:57] VITALS: BP 158/74
[2022-01-14] MEDS: amLODIPine 5 MG TAB PO SCH (08:54)
[2022-01-14] MEDS: CLOPIDOGREL 75 MG TAB PO SCH (08:54)
[2022-01-14] MEDS: ASPIRIN 81 MG CHEW TABLET PO SCH (08:54)
== END 2022-01-14 11:48 | disposition home or self-care (01) | DRG 384 ==
LOC: M ED 14:22 → M ED INP 16:45 → M PCU 23:30
PROVIDERS: ADMIT Internal Medicine; ATTEND Internal Medicine
DX: S20.219A Contusion of unspecified front wall of thorax, initial encounter (principal); I70.1 Atherosclerosis of renal artery; I10 Essential (primary) hypertension; I16.0 Hypertensive urgency; E11.9 Type 2 diabetes mellitus without complications; E66.9 Obesity, unspecified; G47.33 Obstructive sleep apnea (adult) (pediatric); I25.10 Atherosclerotic heart disease of native coronary artery without angina pectoris; Z95.5 Presence of coronary angioplasty implant and graft; R55 Syncope and collapse; Z79.82 Long term (current) use of aspirin; Z79.84 Long term (current) use of oral hypoglycemic drugs; Z79.899 Other long term (current) drug therapy; Z79.02 Long term (current) use of antithrombotics/antiplatelets; V43.52XA Car driver injured in collision with other type car in traffic accident, initial encounter; Y93.89 Activity, other specified; Y99.8 Other external cause status; Y92.414 Local residential or business street as the place of occurrence of the external cause; Z68.27 Body mass index [BMI] 27.0-27.9, adult

== ENCOUNTER → 2022-04-27 | Outpatient (CLI) | payer MEDICARE, BC, OTHER ==
[~2022-04-27] MED LIST changes: +AMLO1TAB24 PO; +ASPI81CH33 PO; +ATOR80TA59 PO; +CARV25TA PO; +NITR0.4S14 SL; +TORS5TAB2 PO
[2022-04-27 11:07] LABS: ALBUMIN 3.8 G/DL (3.2-5.2); CALCIUM LEVEL 8.8 MG/DL (8.3-10.6); CREATININE FOR GFR 1.72 MG/DL (0.70-1.30); GLOMERULAR FILTRATION RATE 42.2 (>49); PHOSPHORUS LEVEL 5.3 MG/DL (2.4-5.1); POTASSIUM SERUM 4.7 MMOL/L (3.5-5.1)
== END ==
LOC: M PLALAB 07:24
PROVIDERS: ATTEND Internal Medicine Cardiovascular Disease
DX: I50.42 Chronic combined systolic (congestive) and diastolic (congestive) heart failure (principal)

== ENCOUNTER → 2022-05-08 | Outpatient (REF) | payer MEDICARE, OTHER, BC ==
[2022-05-08 13:17] LABS: PERCENT SATURATION 30.7 % (19.7-50.0)
[2022-05-08 13:19] LABS: FERRITIN 49.9 NG/ML (10.5-307.3)
== END ==
LOC: M LAB REF 11:10
PROVIDERS: ATTEND Family Medicine
DX: D64.9 Anemia, unspecified (principal)

== ENCOUNTER → 2022-07-27 | Outpatient (CLI) | payer MEDICARE, BC, OTHER ==
[2022-07-27 13:25] LABS: ALBUMIN 3.6 G/DL (3.2-5.2); CALCIUM LEVEL 8.6 MG/DL (8.3-10.6); CREATININE FOR GFR 1.87 MG/DL (0.70-1.30); GLOMERULAR FILTRATION RATE 38.3 (>49); PHOSPHORUS LEVEL 4.4 MG/DL (2.4-5.1); POTASSIUM SERUM 4.8 MMOL/L (3.5-5.1)
== END ==
LOC: M PLALAB 09:40
PROVIDERS: ATTEND Internal Medicine Cardiovascular Disease
DX: I50.42 Chronic combined systolic (congestive) and diastolic (congestive) heart failure (principal)

== ENCOUNTER → 2022-08-09 | Outpatient (CLI) | payer MEDICARE, BC, OTHER ==
[2022-08-09 14:18] LABS: ALBUMIN 3.6 G/DL (3.2-5.2); CALCIUM LEVEL 8.8 MG/DL (8.3-10.6); CREATININE FOR GFR 1.84 MG/DL (0.70-1.30); PHOSPHORUS LEVEL 4.2 MG/DL (2.4-5.1); POTASSIUM SERUM 4.9 MMOL/L (3.5-5.1)
== END ==
LOC: M PLALAB 09:47
PROVIDERS: ATTEND Internal Medicine Cardiovascular Disease
DX: I50.42 Chronic combined systolic (congestive) and diastolic (congestive) heart failure (principal)

== ENCOUNTER → 2022-09-04 | Outpatient (CLI) | payer MEDICARE, BC, OTHER ==
[~2022-09-04] MED LIST changes: -NIFE90TA20 PO; +NIFE90TA46 PO
== END ==
LOC: M SLEEP 20:00
PROVIDERS: ATTEND Internal Medicine Pulmonary Disease
DX: G47.33 Obstructive sleep apnea (adult) (pediatric) (principal)

== ENCOUNTER → 2022-11-08 | Outpatient (CLI) | payer MEDICARE, BC, OTHER | LOC: M SLEEP 20:00 | PROVIDERS: ATTEND Internal Medicine Pulmonary Disease | DX: G47.33 Obstructive sleep apnea (adult) (pediatric) (principal) ==

== ENCOUNTER 2023-01-24 07:43 | Day surgery (SDC) | payer MEDICARE, BC, OTHER ==
[~2023-01-24] VITALS: Ht 165.1 cm; Wt 83.5 kg
[~2023-01-24 07:43] MED LIST changes: +CAPT1TAB17 PO; +FARX1TAB5 PO; +GLIM2TAB29 PO; +NS 1,000 ML IV ONE
[2023-01-24] MEDS ORDERED: fentaNYL 100 MCG/2 ML INJECTION As Ordered ONE (09:11)
[2023-01-24 10:27] VITALS: BP 150/75; O2SAT 95
== END 2023-01-24 10:20 | disposition home or self-care (01) ==
LOC: M OPP 07:43
PROVIDERS: ATTEND Internal Medicine Gastroenterology
DX: Z12.11 Encounter for screening for malignant neoplasm of colon (principal); D12.8 Benign neoplasm of rectum; R13.10 Dysphagia, unspecified; K64.0 First degree hemorrhoids; K57.30 Diverticulosis of large intestine without perforation or abscess without bleeding; Z86.010 Personal history of colon polyps; E11.9 Type 2 diabetes mellitus without complications; I10 Essential (primary) hypertension; E78.00 Pure hypercholesterolemia, unspecified; G47.30 Sleep apnea, unspecified; Z79.899 Other long term (current) drug therapy; Z79.84 Long term (current) use of oral hypoglycemic drugs; Z79.82 Long term (current) use of aspirin; Z86.73 Personal history of transient ischemic attack (TIA), and cerebral infarction without residual deficits; Z95.5 Presence of coronary angioplasty implant and graft
CPT/HCPCS: 43239; 45385; 88305; J3010

== ENCOUNTER → 2023-04-12 | Outpatient (REF) | payer MEDICARE, BC, OTHER ==
[~2023-04-12] MED LIST changes: -NS 1,000 ML IV ONE
[2023-04-12 19:06] LABS: TOTAL PROTEIN,RANDOM URINE 22.4 MG/DL (0.0-14.0)
[2023-04-12 19:11] LABS: CREATININE,RANDOM URINE 30.6 MG/DL
== END ==
LOC: M LAB REF 17:20
PROVIDERS: ATTEND Internal Medicine Nephrology
DX: E11.21 Type 2 diabetes mellitus with diabetic nephropathy (principal)

== ENCOUNTER → 2023-04-25 | Outpatient (CLI) | payer MEDICARE, BC, OTHER | LOC: M PLAIMG 08:04 | PROVIDERS: ATTEND Internal Medicine Cardiovascular Disease | DX: I35.0 Nonrheumatic aortic (valve) stenosis (principal); I50.22 Chronic systolic (congestive) heart failure; I11.0 Hypertensive heart disease with heart failure ==

== ENCOUNTER → 2024-03-20 | Outpatient (REF) | payer MEDICARE, BC, OTHER ==
[~2024-03-20] MED LIST changes: +GABA-1172 PO; -GABA-282 PO; -GLIM1TAB4 PO; +GLIM1TAB84 PO; +RAMI10CA64 PO; -RAMI1CAP26 PO
[2024-03-20 10:27] LABS: ALBUMIN 3.8 G/DL (3.2-5.2); CREATININE FOR GFR 1.58 MG/DL (0.70-1.30); GLOMERULAR FILTRATION RATE 46.3 (>42); PHOSPHORUS LEVEL 3.4 MG/DL (2.4-5.1); POTASSIUM SERUM 4.2 MMOL/L (3.5-5.1)
== END ==
LOC: M LABWUC 09:17
PROVIDERS: ATTEND Internal Medicine Cardiovascular Disease
DX: I50.22 Chronic systolic (congestive) heart failure (principal)

== ENCOUNTER → 2024-05-05 | Outpatient (CLI) | payer MEDICARE, BC | LOC: M CARPUL 14:04 | PROVIDERS: ATTEND Internal Medicine Cardiovascular Disease | DX: I50.22 Chronic systolic (congestive) heart failure (principal); I35.0 Nonrheumatic aortic (valve) stenosis; G47.33 Obstructive sleep apnea (adult) (pediatric) ==

== ENCOUNTER → 2024-06-20 | Outpatient (CLI) | payer MEDICARE, BC | LOC: M RAD 08:47 | PROVIDERS: ATTEND Registered Nurse | DX: I65.29 Occlusion and stenosis of unspecified carotid artery (principal) ==

== ENCOUNTER → 2025-03-06 | Outpatient (CLI) | payer MEDICARE, BC ==
[~2025-03-06] MED LIST changes: -PRAV40TA2 PO; +PRAV40TA85 PO
[2025-03-06 12:23] LABS: BASO # 0.1 10^3/uL (0.0-0.2); BASO % 1.3 % (0.0-1.0); EOS # 0.4 10^3/uL (0.0-0.5); EOS % 4.4 % (0.0-3.0); LYMPH # 1.6 10^3/uL (1.5-5.0); LYMPH % 17.6 % (24.0-44.0); MONO # 0.9 10^3/uL (0.0-0.8); MONO % 10.0 % (2.0-8.0); NEUTROPHILS # 6.0 10^3/uL (1.5-8.5); NEUTROPHILS % 66.3 % (36.0-66.0); PLATELET COUNT, AUTOMATED 166 10^3/uL (150-450)
[2025-03-06 12:28] LABS: ALT/SGPT 22.0 U/L (7.0-40); AST/SGOT 24.0 U/L (<34); CALCIUM LEVEL 8.7 MG/DL (8.3-10.6); CARBON DIOXIDE LEVEL 25.0 MMOL/L (20-31); CHLORIDE LEVEL 107.0 MMOL/L (98-107); CHOLESTEROL LEVEL 127.0 MG/DL (<200); CHOLESTEROL RISK RATIO 3.75 (<5); CREATININE FOR GFR 1.97 MG/DL (0.70-1.30); GLOMERULAR FILTRATION RATE 35.4 (>42); LDL CHOLESTEROL 61.8 MG/DL (<100); NON-HDL-C 93.2 MG/DL; POTASSIUM SERUM 4.8 MMOL/L (3.5-5.1); SODIUM LEVEL 141.0 MMOL/L (136-145); TRIGLYCERIDES LEVEL 157.0 MG/DL (<150)
== END ==
LOC: M PLALAB 07:17
PROVIDERS: ATTEND Registered Nurse
DX: I50.22 Chronic systolic (congestive) heart failure (principal); I25.10 Atherosclerotic heart disease of native coronary artery without angina pectoris